=== PATIENT | male | born 1980 | race Caucasian/White ===

== ENCOUNTER 2019-06-02 15:58 | Inpatient (IN) | payer MEDICAID ==
[~2019-06-02] VITALS: Ht 180.3 cm; Wt 78.9 kg
--- NOTE | 2019-06-02 16:03 | NUR ---
CALLED FOR TRIAGE, NO ANSWER
--- NOTE | 2019-06-02 16:40 | NUR ---
PT PLACED ON GOWN, PULSE OX AND BP CUFF IN PLACE. PT REPORTS OF INABILITY TO SWALLOW AND KEEP FOOD/FLUIDS DOWN FOR FIVE DAYS SINCE INTUBATION. PT C/O SOB, GREEN AND BLOODY SPUTUM AND GASTRIC CONTENTS, THROAT PAIN AND UPPER CHEST PRESSURE. PT STATES HE BELIEVES HIS DENTURES WERE PUSHED DOWN ESOPHAGUS WHEN HE WAS INTUBATED AFTER OD FIVE DAYS AGO. PT SAYS HE STAYED AT [facility] FOR TWO OR THREE DAYS, HAD PAIN AND DISCOMFORT FOR THAT DURATION. KLEENEX, EMESIS BAG AND SPECIMEN CUP PROVIDED. CALL LIGHT WITHIN REACH.
[2019-06-02] MEDS ORDERED: SODIUM CHLORIDE 0.9% 1,000ML IVBOLUS ONE (17:30)
[2019-06-02] MEDS ORDERED: SODIUM CHLORIDE FLUSH 10ML SYR IVF ONE (17:30)
[2019-06-02] MEDS ORDERED: MORPHINE SULFATE 4 MG/ML, 1ML ONE ×2 (17:42→19:14)
[2019-06-02] MEDS: MORPHINE SULFATE 4 MG/ML, 1ML IVPush PRN ×2 (17:43→19:24)
--- NOTE | 2019-06-02 17:49 | NUR ---
TASK RN: PIV EST, LABS DRAWN, IVF INFUSING W/O DIFFICULTY AND PT MED NOTED FOR PAIN. PT AWARE OF PLAN FOR CT. CALL LIGHT W/I REACH. PT INSTRUCTED TO NOT DRINK OR EAT ANYTHING UNTIL TESTS ARE RESULTED.
[2019-06-02 17:58] LABS: ANION GAP 7 mmol/L (5-15); CALCIUM 8.6 mg/dL (8.5-10.1); CHLORIDE 105 mmol/L (98-107); CREATININE 0.88 mg/dL (0.7-1.3)
[2019-06-02 17:59] LABS: ALANINE AMINOTRANSFERASE 37 U/L (12-78); ALBUMIN 3.6 g/dL (3.4-5.0)
[2019-06-02 18:01] LABS: ALKALINE PHOSPHATASE 75 U/L (45-117); BASOPHILS # (AUTO) 0.03 x10^3/uL (0-0.1); BASOPHILS % (AUTO) 0 % (0-1); BILIRUBIN,TOTAL 0.5 mg/dL (0.2-1.0); EOSINOPHILS # (AUTO) 0.09 x10^3/uL (0-0.4); EOSINOPHILS % (AUTO) 1 % (1-7); LYMPHOCYTES % (AUTO) 22 % (22-44); MD NO; MEAN CORPUSCULAR HEMOGLOBIN 29.1 pg (27.5-34.5); MEAN CORPUSCULAR HGB CONC 32.8 g/dL (33.2-36.2); MEAN CORPUSCULAR VOLUME 88.6 fL (81-97); MEAN PLATELET VOLUME 9.4 fL (7.4-10.4); MONOCYTES # (AUTO) 0.87 x10^3/uL (0.2-0.8); MONOCYTES % (AUTO) 12 % (2-9); NEUTROPHILS # (AUTO) 4.78 x10^3/uL (1.8-6.8); NEUTROPHILS % (AUTO) 65 % (42-75); PLATELET COUNT 229 x10^3/uL (130-400); RED BLOOD COUNT 5.23 x10^6/uL (4.38-5.82); RED CELL DISTRIBUTION WIDTH 12.9 % (9.4-14.8); TOTAL PROTEIN 7.5 g/dL (6.4-8.2)
[2019-06-02 18:23] LABS: MONOSCREEN Negative (Negative)
[2019-06-02] MEDS ORDERED: OMNIPAQUE 350 MG/ML, 100ML BOTTLE ONE (18:30)
--- NOTE | 2019-06-02 19:00 | NUR ---
ALL RESULTS BACK, PT FOR RECHECK.
--- NOTE | 2019-06-02 19:27 | NUR ---
ERP IN TO REASESS AND UPDATE PT ON POC. PT TO GO TO OR TONIGHT.
--- NOTE | 2019-06-02 20:05 | NUR ---
ADEEL RN: REPORT GIVEN TO BOBBY WATKINS RN.
[2019-06-02] MEDS ORDERED: LIDOCAINE/MPF 2%-EPI 1:200K, 20 ML ONE (20:16)
[2019-06-02] MEDS ORDERED: LABETALOL 5MG/ML, 20ML IV PRN (20:30)
[2019-06-02] MEDS ORDERED: LIDOCAINE-MPF 2% ,5ML ONE (20:30)
[2019-06-02] MEDS ORDERED: MEPERIDINE/PF 25MG/ML,1ML IVPush PRN (20:30)
[2019-06-02] MEDS ORDERED: hydrALAzine 20 MG/ML, 1ML IV PRN (20:30)
[2019-06-02] MEDS ORDERED: HYDROmorphone 2 MG/ML, 1ML IVPush PRN (20:30)
[2019-06-02] MEDS ORDERED: PROPOFOL 10 MG/ML, 20ML ONE (20:30)
[2019-06-02] MEDS ORDERED: SUCCINYLCHOLINE 20 MG/ML, 10ML ONE ×2 (20:30→20:34)
[2019-06-02] MEDS ORDERED: FENTANYL PF 100 MCG/2ML IV PRN (20:30)
[2019-06-02] MEDS ORDERED: EPHEDRINE 50 MG/ML, 1ML IVPush PRN (20:30)
[2019-06-02] MEDS ORDERED: ACETAMINOPHEN 325 MG TABLET PO PRN (20:30)
[2019-06-02] MEDS ORDERED: ONDANSETRON 2MG/ML, 2ML IV PRN (20:30)
[2019-06-02] MEDS ORDERED: PROMETHAZINE 25 MG/ML, 1ML IV PRN (20:30)
[2019-06-02] MEDS ORDERED: OXYcodone 5 MG/5 ML ORAL.SOL UDC PO PRN (20:30)
[2019-06-02] MEDS ORDERED: MIDAZOLAM 1 MG/ML, 2ML ONE (20:33)
[2019-06-02] MEDS ORDERED: CLINDAMYCIN 150 MG/ML, 6ML ONE (20:48)
[2019-06-02] MEDS ORDERED: morphine SULFATE 10 MG/ML, 1ML IVPush PRN (23:00)
[2019-06-02] MEDS ORDERED: PROMETHAZINE 25 MG/ML, 1ML IM PRN (23:00)
[2019-06-02] MEDS ORDERED: LABETALOL 5 MG/ML SYR. (IV ONLY) IVPush PRN (23:00)
[2019-06-02] MEDS ORDERED: ONDANSETRON 2MG/ML, 2ML IVPush PRN (23:00)
[2019-06-02] MEDS: AMPICILLIN/SULBACTAM 3 GM in SODIUM CHLORIDE 0.9% 100 ML IV SCH (23:25)
[2019-06-02] MEDS: NICOTINE 21 MG/24 HR PATCH.TD24 TD SCH (23:25)
[2019-06-02] MEDS: ENOXAPARIN 40 MG/0.4 ML SQ SCH (23:25)
[2019-06-03 01:11] VITALS: BP 135/88
[2019-06-03] MEDS: LACTATED RINGERS 1,000 ML IV SCH ×2 (05:10→23:30)
[2019-06-03] MEDS: AMPICILLIN/SULBACTAM 3 GM in SODIUM CHLORIDE 0.9% 100 ML IV SCH ×4 (05:10→23:23)
[2019-06-03 05:36] LABS: BASOPHILS # (AUTO) 0.03 x10^3/uL (0-0.1); BASOPHILS % (AUTO) 1 % (0-1); EOSINOPHILS # (AUTO) 0.13 x10^3/uL (0-0.4); EOSINOPHILS % (AUTO) 2 % (1-7); LYMPHOCYTES # (AUTO) 2.31 x10^3/uL (1-3.4); LYMPHOCYTES % (AUTO) 41 % (22-44); MD NO; MEAN CORPUSCULAR HEMOGLOBIN 28.8 pg (27.5-34.5); MEAN CORPUSCULAR HGB CONC 32.4 g/dL (33.2-36.2); MEAN PLATELET VOLUME 9.3 fL (7.4-10.4); MONOCYTES # (AUTO) 0.66 x10^3/uL (0.2-0.8); MONOCYTES % (AUTO) 12 % (2-9); NEUTROPHILS # (AUTO) 2.48 x10^3/uL (1.8-6.8); NEUTROPHILS % (AUTO) 44 % (42-75); PLATELET COUNT 181 x10^3/uL (130-400); RED BLOOD COUNT 4.73 x10^6/uL (4.38-5.82); RED CELL DISTRIBUTION WIDTH 13.4 % (9.4-14.8)
[2019-06-03 05:53] LABS: ANION GAP 5 mmol/L (5-15); CALCIUM 8.3 mg/dL (8.5-10.1); CHLORIDE 106 mmol/L (98-107)
[2019-06-03 05:56] LABS: CREATININE 0.91 mg/dL (0.7-1.3)
[2019-06-03 06:56] VITALS: BP 117/73
[2019-06-03] MEDS ORDERED: NICOTINE 21 MG/24 HR PATCH.TD24 TD SCH (09:00)
[2019-06-03 11:17] VITALS: BP 132/60
[2019-06-03] MEDS: OXYcodone IR 5MG TABLET PO PRN ×2 (12:39→19:51)
[2019-06-03] MEDS: ACETAMINOPHEN 325 MG TABLET PO PRN ×2 (12:39→19:52)
[2019-06-03 13:16] VITALS: BP 126/76
[2019-06-03 19:17] VITALS: BP 132/86
[2019-06-03] MEDS: ENOXAPARIN 40 MG/0.4 ML SQ SCH (23:22)
[2019-06-03] MEDS: NICOTINE 21 MG/24 HR PATCH.TD24 TD SCH (23:23)
[2019-06-04 04:27] VITALS: BP 130/77
[2019-06-04] MEDS: AMPICILLIN/SULBACTAM 3 GM in SODIUM CHLORIDE 0.9% 100 ML IV SCH ×2 (05:16→11:10)
[2019-06-04 07:38] VITALS: BP 127/82
[2019-06-04] MEDS: LACTATED RINGERS 1,000 ML IV SCH (11:00)
[2019-06-04] MEDS ORDERED: AMOX1TAB64 PO (11:31)
[2019-06-04 12:28] VITALS: BP 128/73
[2019-06-04 13:13] VITALS: BP 134/66
== END 2019-06-04 13:34 | disposition home or self-care (01) | DRG 395 ==
LOC: ED 16:54 → EDIP 19:44 → 4NE 21:55 → DCLOUNGE 06-04 13:22
PROVIDERS: ADMIT Family Medicine; ATTEND Otolaryngology
PROC: 0CCM7ZZ Extirpation of Matter from Pharynx, Via Natural or Artificial Opening (ICD-10-PCS; 2019-06-02)
PROC: 0CJS8ZZ Inspection of Larynx, Via Natural or Artificial Opening Endoscopic (ICD-10-PCS; principal; 2019-06-02 20:30)
DX: T18.108A Unspecified foreign body in esophagus causing other injury, initial encounter (principal); E11.9 Type 2 diabetes mellitus without complications; F15.10 Other stimulant abuse, uncomplicated; F17.210 Nicotine dependence, cigarettes, uncomplicated; B19.20 Unspecified viral hepatitis C without hepatic coma; J02.9 Acute pharyngitis, unspecified; I10 Essential (primary) hypertension; K59.00 Constipation, unspecified; Z82.49 Family history of ischemic heart disease and other diseases of the circulatory system; Z82.5 Family history of asthma and other chronic lower respiratory diseases
CPT/HCPCS: 36415; 70360; 74220; 87806; J3490; S0077; 70491; 74176; 80048; 80053; 83605; 85025; 86308; 87040; 87081; 87880; 94640; 96361; 96374; 96376; G0378; J0295; J1650; J2250; J2704; Q9967; G0475; J0330; J2270; J7030; J7120